=== PATIENT | female | born 1980 ===

== ENCOUNTER 2021-11-20 06:10 | Day surgery (SDC) | payer OTHER ==
[2021-11-20] MEDS ORDERED: NEXIUM 24HR20 MG PO (08:46)
== END 2021-11-20 10:50 | disposition home or self-care (01) ==
LOC: AMB-ENDOS 06:10
PROVIDERS: ATTEND Surgery
DX: K29.70 Gastritis, unspecified, without bleeding (principal); R10.13 Epigastric pain; K44.9 Diaphragmatic hernia without obstruction or gangrene; Z20.822 Contact with and (suspected) exposure to COVID-19; I10 Essential (primary) hypertension

== ENCOUNTER 2023-07-29 07:30 | Inpatient (IN) | payer OTHER ==
[~2023-07-29] VITALS: Ht 157.5 cm; Wt 116.1 kg
[~2023-07-29 07:30] MED LIST: NEXIUM 24HR20 MG PO; PROVERA2.5 MG PO
[2023-07-29] MEDS ORDERED: LOSARTAN POTASS50 MG PO (08:24)
[2023-07-29 08:50] LABS: HEMATOCRIT 32.6 % (36.0-45.00); MEAN CORPUSCULAR HGB CONC 30.6 g/dl (32.0-36.0); PLATELET COUNT 435 K/uL (150-450); RED BLOOD COUNT 4.91 M/uL (4.00-6.00)
[2023-07-29 08:52] LABS: MEAN CELL VOLUME 66.3 fL (80.00-100.00); MEAN CORPUSCULAR HEMOGLOBIN 20.3 pg (27.00-32.0)
[2023-07-29 08:55] LABS: URINE APPEARANCE Clear; URINE BILIRRUBIN Negative (NEGATIVE); URINE BLOOD Small; URINE COLOR Yellow; URINE GLUCOSE Negative (NEGATIVE); URINE LEUKOCYTE Small; URINE NITRATE Negative; URINE PROTEIN Negative (NEGATIVE); URINE UROBILINOGEN 0.2 E.U./dl
[2023-07-29 08:57] LABS: URINE BACTERIA 913.3 uL (0.0-1933); URINE EPITHELIAL CELLS 84.7 uL (0.0-38.8); URINE RBC 10.2 uL (0.0-20.8); URINE WBC 179.3 uL (0.0-23.2)
[2023-07-29 09:07] LABS: ALBUMIN 3.6 gm/dL (3.4-5.0); BILIRUBIN TOTAL 0.47 mg/dL (0.3-1.2); CALCIUM 9.2 mg/dL (8.5-10.1); CREATININE SERUM 0.66 mg/dL (0.55-1.02); GFR 98.21; GLOBULINA 3.8 G/DL (2.4-3.5); POTASSIUM 4.04 mEq/L (3.5-5.1); TOTAL PROTEIN 7.4 gm/dL (6.4-8.2)
[2023-07-29 10:02] LABS: PARTIAL THROMBOPLASTIN TIME 28.1 SECONDS (22.0-34.0); PROTHROMBIN TIME 10.5 SECONDS (9.0-11.5)
[2023-07-29 10:44] LABS: RED CELL DISTRIBUTION WIDTH 20.5 % (11.5-14.5)
[2023-08-05] MEDS ORDERED: CEFOXITIN SODIUM 2,000 MG VIAL IV ONE (06:44)
[2023-08-05] MEDS ORDERED: METRONIDAZOLE/SODIUM CHLORIDE 500 MG/100 ML PIGGYBACK IV ONE ×2 (06:45→09:00)
[2023-08-05] MEDS ORDERED: POVIDONE-IODINE 118 ML BOTT TOP ONE ×2 (06:45→09:00)
[2023-08-05] MEDS ORDERED: CEFTRIAXONE SODIUM 2,000 MG VIAL IV ONE (09:00)
[2023-08-05] MEDS ORDERED: FAMOTIDINE/PF 20 MG/2 ML VIAL IV SCH (10:10)
[2023-08-05] MEDS ORDERED: KETOROLAC TROMETHAMINE 30 MG VIAL IV PRN (10:15)
[2023-08-05] MEDS ORDERED: PROMETHAZINE HCL 50 MG/ML AMPUL IM PRN (10:15)
[2023-08-05] MEDS ORDERED: RINGERS SOLUTION,LACTATED 1,000 ML IV SCH (10:15)
[2023-08-05] MEDS ORDERED: MEPERIDINE HCL/PF 50 MG/ML VIAL IM PRN (10:15)
[2023-08-05] MEDS ORDERED: ENALAPRILAT DIHYDRATE 2.5 MG/2 ML VIAL IV ONE (12:02)
[2023-08-05] MEDS ORDERED: KETOROLAC TROMETHAMINE 30 MG VIAL ONE (12:29)
[2023-08-05] MEDS ORDERED: FAMOTIDINE/PF 20 MG/2 ML VIAL ONE (12:40)
[2023-08-05] MEDS ORDERED: SIMETHICONE 125 MG CAPSULE PO SCH (13:00)
[2023-08-05] MEDS ORDERED: ENALAPRILAT DIHYDRATE 1.25 MG/ML VIAL IV PRN (15:15)
[2023-08-05 17:10] LABS: HEMOGLOBIN 9.4 g/dL (12.0-15.00); MEAN CORPUSCULAR HGB CONC 30.2 g/dl (32.0-36.0); PLATELET COUNT 352 K/uL (150-450); RED BLOOD COUNT 4.68 M/uL (4.00-6.00); RED CELL DISTRIBUTION WIDTH 20.5 % (11.5-14.5)
[2023-08-05 17:11] LABS: MEAN CELL VOLUME 66.3 fL (80.00-100.00)
[2023-08-06] MEDS ORDERED: ACETAMINOPHEN-1 EAC2 PO (08:55)
[2023-08-06] MEDS ORDERED: FAMOTIDINE20 MG PO (08:56)
[2023-08-06] MEDS ORDERED: IBUPROFEN600 MG PO (08:56)
[2023-08-06] MEDS ORDERED: LOSARTAN POTASSIUM 50 MG TABLET PO SCH (09:00)
[2023-08-06] MEDS ORDERED: IBUprofen 600 MG TABLET PO PRN (09:00)
[2023-08-06] MEDS ORDERED: ACETAMINOPHEN WITH CODEINE 1 UDTAB TABLET PO PRN (09:00)
[2023-08-06] MEDS ORDERED: FAMOtidine 20 MG TABLET PO SCH (09:00)
== END 2023-08-06 12:58 | disposition home or self-care (01) | DRG 743 ==
LOC: OB/GYN 08-05 05:00 → O/R 08-05 05:00 → SURH 08-05 07:00 → OB/GYN 08-05 11:35
PROVIDERS: ADMIT Obstetrics & Gynecology; ATTEND Obstetrics & Gynecology
PROC: 0UT7FZZ Resection of Bilateral Fallopian Tubes, Via Natural or Artificial Opening With Percutaneous Endoscopic Assistance (ICD-10-PCS; 2023-08-05)
PROC: 0TJB8ZZ Inspection of Bladder, Via Natural or Artificial Opening Endoscopic (ICD-10-PCS; 2023-08-05)
PROC: 0UT9FZZ Resection of Uterus, Via Natural or Artificial Opening With Percutaneous Endoscopic Assistance (ICD-10-PCS; principal; 2023-08-05 07:00)
DX: N85.02 Endometrial intraepithelial neoplasia [EIN] (principal); N72 Inflammatory disease of cervix uteri; Z20.822 Contact with and (suspected) exposure to COVID-19